=== PATIENT | male | born 1945 | race Caucasian/White ===

== ENCOUNTER → 2016-12-12 | Outpatient (CLI) | payer OTHER ==
[~2016-12-12] VITALS: Ht 174 cm; Wt 94.0 kg
[2016-12-12] VITALS (7 sets, daily range): BP systolic 133–155; BP diastolic 60–70
[~2016-12-12] MED LIST: BASAGLAR K100 UNIT/1 SC; CARDIZEM CD,CA240 MG PO; HUMALOG100 UNIT/1 SC; HYDRALAZINE HC100 MG PO; LOW DOSE ASPIRI81 M1 PO; NEPHRO-VITE,1 TABLET PO; PANTOPRAZOLE SO40 MG PO; RENVELA800 MG PO
[2016-12-12 21:39] LABS: HEMATOCRIT 24.3 % (38.0-50.0)
== END ==
LOC: IVINF 16:00
PROVIDERS: Nurse Practitioner Family
DX: R79.89 Other specified abnormal findings of blood chemistry (principal); D64.9 Anemia, unspecified
CPT/HCPCS: 36415; 36430; 85014; 85018; 86900; 86901; 86920; 86999; P9016